=== PATIENT | female | born 1985 | race Caucasian/White ===

== ENCOUNTER 2017-02-06 19:23 | Emergency (ER) | payer SELFPAY ==
[2017-02-06 19:33] VITALS: RESP 18; TEMP 98.4; O2SAT 98
--- NOTE | 2017-02-06 19:45 | C.PDOC ---
History Of Present Illness 31 y/o female with no significant PMhx presents to ER with c/o of left wrist pain radiating to right thumb and forefinger with tingling sensation. Patient denies trauma, injury, or new weakness. Time Seen by Provider: 02/06/17 19:37 Chief Complaint (Nursing): Finger,Hand,&Wrist History Per: Patient History/Exam Limitations: no limitations Onset/Duration Of Symptoms: Days Current Symptoms Are (Timing): Still Present Quality: "Pain" Recent travel outside of the [place]: No Past Medical History Reviewed: Historical Data, Nursing Documentation, Vital Signs Vital Signs: Last Vital Signs Temp 98.4 F 02/06/17 19:28 Pulse 71 02/06/17 20:27 Resp 18 02/06/17 20:27 BP 120/72 02/06/17 20:27 Pulse Ox 98 02/06/17 21:38 - Medical History PMH: No Chronic Diseases Family History: States: Unknown Family Hx - Social History Hx Alcohol Use: No Hx Substance Use: No - Immunization History Hx Tetanus Toxoid Vaccination: No Hx Influenza Vaccination: No Hx Pneumococcal Vaccination: No Review Of Systems Except As Marked, All Systems Reviewed And Found Negative. Physical Exam - Physical Exam Appears: Well, Non-toxic Skin: Normal Color, Warm, Dry Head: Atraumatic, Normacephalic Eye(s): bilateral: Normal Inspection Oral Mucosa: Moist Extremity: Normal ROM, Tenderness (Anterior aspect from mid to distal forearm on palpation), Capillary Refill (< 2sec), No Deformity, No Swelling Extremity: Bilateral: Atraumatic, Normal Color And Temperature Pulses: Left Radial: Normal, Right Radial: Normal Neurological/Psych: Oriented x3, Normal Speech, Normal Cognition ED Course And Treatment O2 Sat by Pulse Oximetry: 98 (RA) Pulse Ox Interpretation: Normal Progress Note: Treated with Motrin. Left wrist splint applied by CP, checked by me. On reassessment, patient is resting comfortably, and is in no acute distress. Patient instructed to follow up with clinic/PMD within 1-2 days for further evaluation. 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 - Scribe Statement The provider has reviewed the documentation as recorded by the Bairon Gimenez Provider Scribe Attestation: All medical record entries made by the Bairon were at my direction and personally dictated by me. I have reviewed the chart and agree that the record accurately reflects my personal performance of the history, physical exam, medical decision making, and the department course for this patient. I have also personally directed, reviewed, and agree with the discharge instructions and disposition.
[2017-02-06 20:29] VITALS: BP 120/72; PULSE 71
== END 2017-02-06 20:28 | disposition home or self-care (01) ==
LOC: C.ER 19:23 → SUPCPDRO 19:23 → C.ER 20:28
DX: M77.8 Other enthesopathies, not elsewhere classified (principal); M25.532 Pain in left wrist